=== PATIENT | male | born 1940 | race Caucasian/White ===

== ENCOUNTER 2019-06-01 11:51 | Emergency (ER) | payer MEDICARE ==
--- NOTE | 2019-06-01 12:15 | ED ---
HPI Chest Pain - HPI Summary HPI Summary: This pt is a 79 Y/O M presenting to [facility] with a CC of Right anterior CP that radiates to his R back with SOB. He states that the symptoms began yesterday morning while he drinking his morning coffee. He states that he felt better this morning after waking until 30-45 minutes later when the pain spiked back to the original pain. He rates the pain a 3/10 in severity. He states that he also has dizziness. He states that the pain is described as sharp pain. He denies any fevers, chills, diaphoresis, headaches, recent trauma, and N/V. He states that deep breaths cause an increase in pain. He took 2 ibuprofen last night while in a bath which helped to alleviate some of his Sxs. He has a PMHx of COPD and arthritis. - History of Current Complaint Chief Complaint: EDChestPainROMI Time Seen by Provider: 06/01/19 11:52 Hx Obtained From: Patient, Family/[employer] - daughter Onset/Duration: Started Days Ago - 1, Still Present Timing: Constant Initial Severity: Mild Current Severity: Mild Pain Intensity: 3 Pain Scale Used: 0-10 Numeric Chest Pain Location: Right Anterior Chest Pain Radiates: Yes Chest Pain Radiates To:: Back - R side Character: Sharp/Stabbing Aggravating Factor(s): Deep Breaths Alleviating Factor(s): OTC Meds - Ibuprofen, Other: - baths Associated Signs and Symptoms: Positive: Negative - recent truama, Chest Pain, Dizziness, Shortness of Breath. Negative: Headaches, Fever, Chills, Diaphoresis , Nausea, Vomiting - Allergy/Home Medications Allergies/Adverse Reactions: Allergies Allergy/AdvReac Type Severity Reaction Status Date / Time bee venom protein (honey bee) Allergy Rash And Verified 06/01/19 12:07 Itching Iodinated Contrast Media Allergy Rash Verified 06/01/19 12:07 iodixanol Allergy Unknown Verified 06/01/19 12:07 Reaction Details Penicillins Allergy Unknown Verified 06/01/19 12:07 Reaction Details Home Medications: Home Medications Acetaminophen TAB* [Tylenol TAB*] 650 mg PO Q6H PRN 06/01/19 [History Confirmed 06/01/19] Docusate CAP* [Colace Cap*] 200 mg PO BID 06/01/19 [History Confirmed 06/01/19] Influenza VAC *QUAD* 2018-* [Fluarix Quad 7742-1260 Syr] 0.5 ml IM ONCE [History Confirmed 06/01/19] PMH/Surg Hx/FS Hx/Imm Hx Previously Healthy: Yes Endocrine/Hematology History: Denies: Hx Diabetes, Hx Systemic Lupus Erythematosus Cardiovascular History: Denies: Hx Congestive Heart Failure, Hx Hypertension History: Denies: Hx Dialysis, Hx Renal Disease Musculoskeletal History: Reports: Hx Arthritis - PT REPORTS MAY HAVE ARTHRITIS MOVES SLOW Denies: Hx Rheumatoid Arthritis Sensory History: Reports: Hx Contacts or Glasses - FOR DRIVING Denies: Hx Hearing Aid Opthamlomology History: Reports: Hx Contacts or Glasses - FOR DRIVING - Cancer History Hx Chemotherapy: No Hx Radiation Therapy: No - Surgical History Surgical History: Yes Surgery Procedure, Year, and Place: achilles re-attached 2003, appendectomy as a child. dental implants. fatty tumor removed from left hip '. tonsilectomy as a young adult Hx Anesthesia Reactions: No - Immunization History Immunizations Up to Date: Yes Infectious Disease History: No Infectious Disease History: Denies: Traveled Outside the [place] in Last 30 Days - Family History Known Family History: Positive: Hypertension - Social History Occupation: Retired Lives: Alone Alcohol Use: Daily Alcohol Amount: 2 BEERS A DAY Hx Substance Use: No Substance Use Type: Reports: None Hx Tobacco Use: Yes Smoking Status (MU): Light Every Day Tobacco Smoker Amount Used/How Often: PT REPORTS 50 YEARS Have You Smoked in the Last Year: Yes Review of Systems Negative: Fever, Chills, Skin Diaphoresis Positive: Chest Pain Positive: Shortness Of Breath Negative: Vomiting, Nausea Musculoskeletal: Negative - recent truama Neurological: Other - POSITIVE Dizziness Negative: Headache All Other Systems Reviewed And Are Negative: Yes Physical Exam - Summary Physical Exam Summary: VITAL SIGNS: Reviewed. GENERAL: Patient is a well-developed and nourished male who is lying comfortable in the stretcher. Patient is not in any acute respiratory distress. HEAD AND FACE: No signs of trauma. No ecchymosis, hematomas or skull depressions. No sinus tenderness. EYES: PERRLA, EOMI x 2, No injected conjunctiva, no nystagmus. EARS: Hearing grossly intact. Ear canals and tympanic membranes are within normal limits. MOUTH: Oropharynx within normal limits. NECK: Supple, trachea is midline, no adenopathy, no JVD, no carotid bruit, no c- spine tenderness, neck with full ROM. CHEST: Symmetric, Tenderness palpitation to R rib cage and R chest. LUNGS: Clear to auscultation bilaterally. No wheezing or crackles. CVS: Regular rate and rhythm, S1 and S2 present, no murmurs or gallops appreciated. ABDOMEN: Soft, non-tender. No signs of distention. No rebound no guarding, and no masses palpated. Bowel sounds are normal. EXTREMITIES: FROM in all major joints, no edema, no cyanosis or clubbing. NEURO: Alert and oriented x 3. No acute neurological deficits. Speech is normal and follows commands. SKIN: Dry and warm Triage Information Reviewed: Yes Vital Signs On Initial Exam: Initial Vitals Temp Pulse Resp BP Pulse Ox 98.1 F 59 18 175/80 100 06/01/19 11:55 06/01/19 11:55 06/01/19 11:55 06/01/19 11:55 06/01/19 11:55 Vital Signs Reviewed: Yes Procedures - Sedation Patient Received Moderate/Deep Sedation with Procedure: No Diagnostics - Vital Signs Vital Signs Temp Pulse Resp BP Pulse Ox 06/01/19 11:55 98.1 F 59 18 175/80 100 - Laboratory Result Diagrams: 06/01/19 12:17 06/01/19 12:17 Lab Statement: Any lab studies that have been ordered have been reviewed, and results considered in the medical decision making process. - Radiology CXR Radiology Interpretation Completed By: Radiologist Summary of Radiographic Findings: Stigmata of obstructive lung disease. No acute pulmonary or cardiac process evident. ED physician has reviewed this report. - EKG 1154 Cardiac Rate: Bradycardia - 57 BPM EKG Rhythm: Sinus Bradycardia ST Segment: Other Summary of EKG Findings: EKG at 1154 shows Sinus Bradycardia at 57 BPM with a RBBB and no STEMI. Interpreted by Dr. Cantu, 06/01/2019 1200. Chest Pain Course/Dx - Course Assessment/Plan: This pt is a 79 Y/O M presenting to [facility] with a CC of Right anterior CP that radiates to his R back with SOB. He states that the symptoms began yesterday morning while he drinking his morning coffee. He states that he felt better this morning after waking until 30-45 minutes later when the pain spiked back to the original pain. He rates the pain a 3/10 in severity. He states that he also has dizziness. He states that the pain is described as sharp pain. He denies any fevers, chills, diaphoresis, headaches, recent trauma , and N/V. He states that deep breaths cause an increase in pain. He took 2 ibuprofen last night while in a bath which helped to alleviate some of his Sxs. He has a PMHx of COPD and arthritis. The physical sounds without a significant abnormality except for glucose of 1:15. Troponin is 0.00. D Dimer is negative. EKG is a normal sinus rhythm without any history elevations. Chest x-ray impression: No acute pathology. In the ED course and the patient was given Toradol, Flexeril and the symptoms improved. I discussed all the findings and test results with the patient. Patient was instructed to return to the emergency room immediately if any of the symptoms return worsens. Plan of care was discussed with the patient and understands and agrees. All questions were answered at patient satisfaction. There were no further complaints or concerns. Lung exam before discharge: CTA B/L. Good air exchange. No wheezing or crackles heard. CVS: S1 and S2 present. No murmurs appreciated. Patient is alert and oriented x 3. Patient is hemodynamically stable. Patient will be discharged home with follow up PCP in the next 2-3 days - Chest Pain Differential Diagnosis/HQI/PQRI: Acute RI, ACS, Angina, CHF, Chest Wall, GI Disease, Lower Respiratory Infection, Pulmonary Edema - Diagnoses Provider Diagnoses: Chest wall pain Discharge ED - Sign-Out/Discharge Documenting (check all that apply): Patient Departure - Discharge Plan Condition: Stable Disposition: HOME Prescriptions: Cyclobenzaprine TAB* [Flexeril 10 MG TAB*] 10 mg PO TID PRN #12 tab PRN Reason: Spasms - Muscle HYDROcodone/ACETAMIN 5-325 MG* [[place] 5-325 TAB*] 1 tab PO Q6H PRN #10 tab MDD 4 PRN Reason: Pain - Severe Patient Education Materials: Chest Wall Pain (ED) Referrals: Raz Doyle MD [Primary Care Provider] - Additional Instructions: F/U with PCP in 2-3 days Take medications as recommended - Billing Disposition and Condition Condition: STABLE Disposition: Home - Attestation Statements Document Initiated by Scribe: Yes Documenting Scribe: Ankit Narvaez Provider For Whom Scribe is Documenting (Include Credential): Maikel Cantu MD Scribe Attestation: I, Ankit Narvaez, scribed for Maikel Cantu MD on 06/01/19 at 1815. Scribe Documentation Reviewed: Yes Provider Attestation: The documentation as recorded by the Ankit zhang accurately reflects the service I personally performed and the decisions made by me, Maikel Cantu MD Status of Scribe Document: Viewed
[2019-06-01 12:29] LABS: ABS Eosinophils 0.1 10^3/ul (0-0.6); ABS Lymphocytes 1.8 10^3/ul (1.0-4.8); ABS Monocytes 0.5 10^3/ul (0-0.8); Eosinophil % 1.7 %; Hematocrit 44 % (42-52); Hemoglobin 15.3 g/dL (14.0-18.0); Lymphocyte % 28.2 %; Mean Corpuscular HGB Conc 35 g/dL (31-36); Mean Corpuscular Hemoglobin 32 pg (27-31); Mean Corpuscular Volume 92 fL (80-94); Mean Platelet Volume 8.2 fL (7.4-10.4); Nucleated Red Blood Cells % 0.1; Platelet Count 198 10^3/uL (150-450); Red Blood Count 4.79 10^6 /uL (4.18-5.48); Red Cell Distribution Width 15 % (10-15); White Blood Count 6.4 10^3/uL (3.5-10.8)
[2019-06-01 12:40] LABS: INR 0.98 (0.82-1.09)
[2019-06-01 12:41] LABS: Albumin 4.1 g/dL (3.2-5.2); Albumin/Globulin Ratio 1.6 (1-3); BUN/Creatinine Ratio 20.9 (8-20); Calcium 9.3 mg/dL (8.6-10.3); EGFR African American 104.1 (>60); Globulin 2.5 g/dL (2-4); Total Bilirubin 0.5 mg/dL (0.2-1.0); Total Protein 6.6 g/dL (6.4-8.9)
[2019-06-01] MEDS ORDERED: Cyclobenzaprine TAB* 10 MG PO ONE (13:46)
[2019-06-01] MEDS ORDERED: Ketorolac *IM* INJ* 60 MG/2 ML VIAL IM ONE (13:46)
[2019-06-01 14:04] VITALS: BP 157/68
== END 2019-06-01 14:02 | disposition home or self-care (01) ==
LOC: ED 11:51
DX: R07.89 Other chest pain (principal); J44.9 Chronic obstructive pulmonary disease, unspecified; F17.200 Nicotine dependence, unspecified, uncomplicated; Z79.899 Other long term (current) drug therapy; Z88.0 Allergy status to penicillin; Z91.041 Radiographic dye allergy status
CPT/HCPCS: 36415; 71046; 80053; 82550; 84484; 85025; 85379; 85610; 93005; 96372; 99283; A9270-GY; J1885